=== PATIENT | female | born 1945 | race Caucasian/White ===

== ENCOUNTER 2017-04-08 09:15 | Outpatient (CLI) | payer MEDICARE, MEDICAID ==
--- NOTE | 2017-04-08 11:37 | Diagnostic Imaging Report ---
Clinical Indication: Weight loss, abdominal pain, uterine bleeding, history of cholecystectomy Technique: No oral contrast utilized, per emergency room physician request IV administration nonionic contrast. Venous phase spiral acquisition obtained through the abdomen and pelvis. Multiplanar reconstructions were generated. Total dose length product 694.18 mGycm. CTDIvol(s) 13.24 mGy. Dose reduction achieved using automated exposure control Comparison: none Findings: The uterus is retroverted, enlarged. It contains 2 hypoattenuating masses, the larger measuring 4.6 cm long axis dimension as well as other areas of heterogeneity. Anterior to the left side of the uterus and contiguous with it is a collection of round fluid attenuation structures with interspersed soft tissue. This structure measures overall 5.5 cm AP by 3 cm transverse by 5.6 cm craniocaudad. It is unclear whether this is attached to the uterus or separate from it. Is there is a 10 mm right iliac chain node noted. There are multiple enlarged retroperitoneal nodes, largest between the aorta and inferior vena cava just above the bifurcation measuring 24 mm long axis dimension. The nodes are solid The gallbladder is surgically absent. Bile ducts are unremarkable. Liver demonstrates a subcentimeter low-attenuation lesion in segment 2 and another in segment 8. The pancreas, spleen, adrenals, right kidney are unremarkable. Left kidney demonstrates a subcentimeter low-attenuation lesion in the lower pole. Normal appendix. No evidence of diverticulosis or diverticulitis. No small bowel distention or small bowel wall thickening. Contrast has traversed the entirety of the small and large bowel. No free or loculated intraperitoneal air or fluid is evident. There is a small sliding-type hiatal hernia. The included lung bases demonstrate posterior atelectatic and possibly fibrotic changes. There are some small bullae. There is a 5 mm nodule in the posterior right lung base, image 5 series 7. The bones demonstrate a wedge compression fracture deformity of the T11 vertebral body. There is fairly extensive degenerative lumbar spondylosis. 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 This is concerning for a complex cystic ovarian neoplasm. However, as it is inseparable from the uterus, it is possible that this represents an exophytic cluster of degenerated fibroids. Recommend further evaluation with pelvic and endovaginal sonography Retroperitoneal and possible right pelvic sidewall lymphadenopathy. Possibly metastatic related to the above. However, the other etiologies also possible 5 mm nodule in the posterior right lung base. If clinically indicated, consider follow-up CT at 6-12 months Posterior atelectatic and possible fibrotic pulmonary parenchymal changes as well as some small bullae T11 vertebral body compression fracture deformity, age indeterminate. Consider MRI this is considered clinically relevant Surgically absent gallbladder Subcentimeter low-attenuation liver and left renal lesions, too small to characterize. Most likely benign simple cysts. No further follow-up necessary Incidental finding of small sliding-type hiatal hernia, left hip prosthesis, degenerative spondylosis The CT scanner at [facility] is accredited by the [employer] and the scans are performed using protocols designed to limit radiation exposure to as low as reasonably achievable to attain images of sufficient resolution adequate for diagnostic evaluation.
== END 2017-04-08 11:15 | disposition home or self-care (01) ==
LOC: CAT 09:15
DX: N93.9 Abnormal uterine and vaginal bleeding, unspecified (principal); R63.4 Abnormal weight loss; Z90.49 Acquired absence of other specified parts of digestive tract; K44.9 Diaphragmatic hernia without obstruction or gangrene; Z96.642 Presence of left artificial hip joint; M47.9 Spondylosis, unspecified; R91.1 Solitary pulmonary nodule
CPT/HCPCS: 74177; Q9967